=== PATIENT | male | born 1970 | race Hispanic/Latino ===

== ENCOUNTER 2018-10-04 23:52 | Emergency (ER) | payer OTHER ==
[2018-10-05 00:39] LABS: BASOPHILS % (AUTO) 0.3 % (0.0-5.0); EOSINOPHILS % (AUTO) 1.2 % (0.0-8.0); LYMPHOCYTES % (AUTO) 17.4 % (21.0-51.0); MEAN CORPUSCULAR HEMOGLOBIN 33.4 pg (27.0-33.0); MEAN CORPUSCULAR HGB CONC 33.3 g/dL (32.0-36.0); MEAN CORPUSCULAR VOLUME 100.3 fL (79-99); MONOCYTES % (AUTO) 6.3 % (3.0-13.0); NEUTROPHILS % (AUTO) 74.8 % (40.0-77.0); NUCLEATED RED BLOOD CELLS 0.1 % (0.0-0.19); PLATELET COUNT (AUTO) 267 K/uL (130-400); RED BLOOD CELL COUNT(AUTO) 4.48 MIL/uL (4.50-6.20); RED CELL DISTRIBUTION WIDTH 12.8 % (11.0-15.5); WHITE BLOOD COUNT (AUTO) 12.1 K/uL (4.8-10.8)
[2018-10-05 00:48] LABS: CREATININE 0.9 mg/dL (0.5-1.5); POTASSIUM 3.7 mmol/L (3.5-5.1)
[2018-10-05 00:50] LABS: INR 0.91 (0.85-1.15); PROTHROMBIN TIME 9.6 SEC (9.6-11.6)
[2018-10-05 00:52] LABS: BILIRUBIN,TOTAL 0.2 mg/dL (0.2-1.0)
== END 2018-10-05 01:38 | disposition home or self-care (01) ==
LOC: EDH 23:52
DX: S82.852A Displaced trimalleolar fracture of left lower leg, initial encounter for closed fracture (principal); S00.83XA Contusion of other part of head, initial encounter; Y99.8 Other external cause status; X58.XXXA Exposure to other specified factors, initial encounter; Y93.89 Activity, other specified; Y92.098 Other place in other non-institutional residence as the place of occurrence of the external cause
CPT/HCPCS: 29515; 36415; 71045; 73600; 80053; 82550; 83690; 84484; 85025; 85610; 85730; 99285; G0480